=== PATIENT | female | born 1995 | race Caucasian/White ===

== ENCOUNTER 2018-03-15 10:45 | Emergency (ER) | payer SELFPAY ==
[~2018-03-15] VITALS: Ht 162.6 cm; Wt 65.8 kg
[2018-03-15 11:37] VITALS: BP 133/89
[2018-03-15] MEDS ORDERED: IBUPROFEN 800 MG TAB PO ONE (12:15)
== END 2018-03-15 12:32 | disposition home or self-care (01) ==
LOC: ER 10:48
DX: K04.7 Periapical abscess without sinus (principal)